=== PATIENT | female | born 1945 | race Caucasian/White ===

== ENCOUNTER 2019-07-14 18:12 | Emergency (ER) | payer MEDICARE, BC ==
[~2019-07-14] VITALS: Ht 162.6 cm; Wt 58.7 kg
[~2019-07-14 18:12] MED LIST: ALBU8.5H5 IH; AMOX500T PO; IBUP-1542 PO; NAPR-985 PO; PRED50TA PO
[2019-07-14 18:29] VITALS: Ht 162.6 cm; Wt 58.7 kg
[2019-07-14] MEDS ORDERED: IBUPROFEN 800 MG TAB PO ONE (19:00)
[2019-07-14 20:48] VITALS: BP 147/74; PULSE 80; RESP 18
== END 2019-07-14 20:49 | disposition home or self-care (01) ==
LOC: FTE 18:12
DX: S92.901A Unspecified fracture of right foot, initial encounter for closed fracture (principal); S89.92XA Unspecified injury of left lower leg, initial encounter; I10 Essential (primary) hypertension; W18.30XA Fall on same level, unspecified, initial encounter; Y92.9 Unspecified place or not applicable
CPT/HCPCS: 73562; 73630

== ENCOUNTER 2019-07-17 15:17 | Emergency (ER) | payer MEDICARE, BC ==
[~2019-07-17] VITALS: Ht 157.5 cm; Wt 53.0 kg
[2019-07-17 15:22] VITALS: BP 145/78; PULSE 79; RESP 20; Ht 157.5 cm; Wt 53.0 kg
== END 2019-07-17 17:13 | disposition home or self-care (01) ==
LOC: E/R 15:17
DX: S20.212A Contusion of left front wall of thorax, initial encounter (principal); W01.198A Fall on same level from slipping, tripping and stumbling with subsequent striking against other object, initial encounter; Y92.9 Unspecified place or not applicable
CPT/HCPCS: 71046